=== PATIENT | female | born 1930 | race Hispanic/Latino ===

== ENCOUNTER → 2019-04-26 | Outpatient (CLI) | payer MEDICARE | END | disposition home or self-care (01) | LOC: RAH 13:24 | PROVIDERS: ATTEND Orthopaedic Surgery | DX: S42.292A Other displaced fracture of upper end of left humerus, initial encounter for closed fracture (principal); X58.XXXA Exposure to other specified factors, initial encounter; Y93.89 Activity, other specified; Y92.89 Other specified places as the place of occurrence of the external cause; Y99.8 Other external cause status | CPT/HCPCS: 73200 ==

== ENCOUNTER → 2020-12-16 | Outpatient (CLI) | payer OTHER | END | disposition home or self-care (01) | LOC: RAH 13:50 | PROVIDERS: ATTEND Family Medicine | DX: R68.89 Other general symptoms and signs (principal); I73.9 Peripheral vascular disease, unspecified; M79.606 Pain in leg, unspecified; I10 Essential (primary) hypertension; E78.49 Other hyperlipidemia | CPT/HCPCS: 93925 ==